=== PATIENT | male | born 1960 | race Caucasian/White ===

== ENCOUNTER → 2017-04-01 | Outpatient (REF) | payer OTHER | LOC: M LAB REF 13:00 | PROVIDERS: ATTEND Internal Medicine | DX: N52.9 Male erectile dysfunction, unspecified (principal) ==

== ENCOUNTER → 2019-11-16 | Outpatient (REF) | payer BC, OTHER ==
[2019-11-17 15:08] LABS: Lyme Disease IgG/IgM Antibodie <0.91 ISR (0.00-0.90); Lyme Disease IgM Ab Quantitati <0.80 index (0.00-0.79)
== END ==
LOC: M LAB REF 12:06
PROVIDERS: ATTEND Internal Medicine
DX: S20.96XA Insect bite (nonvenomous) of unspecified parts of thorax, initial encounter (principal); W57.XXXA Bitten or stung by nonvenomous insect and other nonvenomous arthropods, initial encounter

== ENCOUNTER → 2020-10-22 | Outpatient (CLI) | payer SELFPAY | LOC: M LABSMTC 10:51 | PROVIDERS: ATTEND Pediatrics | DX: Z20.828 Contact with and (suspected) exposure to other viral communicable diseases (principal) ==

== ENCOUNTER 2023-05-02 06:35 | Day surgery (SDC) | payer BC ==
[~2023-05-02] VITALS: Ht 175.3 cm; Wt 88.9 kg
[~2023-05-02 06:35] MED LIST: ATOR1TAB21 PO; NS 1,000 ML IV ONE; SAW1CAP3 PO; VITMTA PO
[2023-05-02] MEDS ORDERED: propofoL 200 MG/20 ML VIAL As Ordered ONE ×2 (06:56→07:40)
[2023-05-02 08:01] VITALS: TEMP 97.3
[2023-05-02 08:21] VITALS: BP 134/73; O2SAT 97
== END 2023-05-02 08:30 | disposition home or self-care (01) ==
LOC: M OPP 06:35
PROVIDERS: ATTEND Internal Medicine Gastroenterology
DX: Z12.11 Encounter for screening for malignant neoplasm of colon (principal); K64.0 First degree hemorrhoids; Z79.02 Long term (current) use of antithrombotics/antiplatelets